=== PATIENT | male | born 1970 | race Caucasian/White ===

== ENCOUNTER 2018-07-13 12:53 | Emergency (ER) | payer OTHER, MEDICARE ==
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
[2018-07-13] MEDS ORDERED: ACETAMINOPHEN 325 MG TABLET PO ONE (13:52)
[2018-07-13] MEDS ORDERED: LORAZEPAM 1 MG TABLET PO ONE (13:53)
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
[2018-07-13 15:21] VITALS: BP 147/107
== END 2018-07-13 15:22 | disposition home or self-care (01) ==
LOC: ER 12:53
DX: M54.2 Cervicalgia (principal); R51 Headache; I10 Essential (primary) hypertension; V87.7XXA Person injured in collision between other specified motor vehicles (traffic), initial encounter
CPT/HCPCS: 70450; 72125; 99284

== ENCOUNTER → 2019-01-08 | Outpatient (CLI) | payer MEDICARE ==
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
== END ==
LOC: RAD 06:54
PROVIDERS: ATTEND Psychiatry & Neurology Neurology
DX: M54.2 Cervicalgia (principal); R51 Headache
CPT/HCPCS: 70553; 72141; A9576

== ENCOUNTER 2019-11-22 07:50 | Inpatient (IN) | payer MEDICARE ==
[2019-11-22] MEDS ORDERED: NORMAL SALINE 1000 ML 1,000 ML IV ONE (08:56)
[2019-11-22 09:12] LABS: VENOUS BLOOD BASE EXCESS -20.8 mmol/L; VENOUS BLOOD HCO3 4.8 mmol/L (20-32)
[2019-11-22 09:14] LABS: ABSOLUTE BASOPHILS # (AUTO) 0.2 10^3/uL (0.0-0.2); ABSOLUTE LYMPHOCYTES (AUTO) 0.9 10^3/uL (0.5-4.7); ABSOLUTE MONOCYTES (AUTO) 0.6 10^3/uL (0.1-1.4); ABSOLUTE NEUT (AUTO) 12.5 10^3/uL (1.7-8.2); BASOPHILS % (AUTO) 1.3 % (0-2); HEMATOCRIT 50.3 % (37.9-51.0); HEMOGLOBIN 17.3 g/dL (13.5-17.0); LYMPHOCYTES % (AUTO) 6.1 % (13-45); MEAN CORPUSCULAR HEMOGLOBIN 30.8 pg (27.0-33.4); MEAN CORPUSCULAR HGB CONC 34.4 g/dL (32.0-36.0); MEAN CORPUSCULAR VOLUME 90 fl (80-97); PLATELET COUNT 334 10^3/uL (150-450); RED BLOOD COUNT 5.62 10^6/uL (4.35-5.55); RED CELL DISTRIBUTION WIDTH 14.1 % (11.5-14.0); SEGMENTED NEUTROPHILS % (AUTO) 88.6 % (42-78); TOTAL CELLS COUNTED % (AUTO) 100 %; WHITE BLOOD COUNT 14.1 10^3/uL (4.0-10.5)
[2019-11-22 09:16] LABS: VENOUS BLOOD PCO2 13.4 mmHg (35-63); VENOUS BLOOD PH 7.17 (7.30-7.42)
[2019-11-22 09:34] LABS: ALKALINE PHOSPHATASE 136 U/L (38-126); ASPARTATE AMINO TRANSFERASE 18 U/L (17-59); BILIRUBIN,DIRECT 0.7 mg/dL (0.0-0.4); BILIRUBIN,TOTAL 1.1 mg/dL (0.2-1.3); BLOOD UREA NITROGEN 36 mg/dL (7-20); CALCIUM 9.7 mg/dL (8.4-10.2); CHLORIDE 77 mmol/L (98-107); POTASSIUM 4.7 mmol/L (3.6-5.0); TOTAL PROTEIN 9.5 g/dL (6.3-8.2)
[2019-11-22 09:49] LABS: APPEARANCE,URINE CLEAR; BILIRUBIN,URINE NEGATIVE (NEGATIVE); COLOR,URINE STRAW; GLUCOSE, URINE >=500 mg/dL (NEGATIVE); KETONES,URINE 80 mg/dL (NEGATIVE); LEUKOCYTE ESTERASE,URINE NEGATIVE (NEGATIVE); NITRITE,URINE NEGATIVE (NEGATIVE); PROTEIN,URINE 30 mg/dL (NEGATIVE); URINE SPECIFIC GRAVITY 1.023; UROBILINOGEN,URINE NEGATIVE mg/dL (<2.0)
[2019-11-22 09:51] LABS: CARBON DIOXIDE < 5 mmol/L (22-30); GLUCOSE 690 mg/dL (75-110)
[2019-11-22] MEDS ORDERED: NORMAL SALINE 100 ML with INSULIN REGULAR, HUMAN 100 UNIT IV PRN ×2 (10:10)
[2019-11-22] MEDS ORDERED: NORMAL SALINE 1000 ML 1,000 ML IV PRN ×2 (10:10→12:52)
--- NOTE | 2019-11-22 10:20 | ER Document Report ---
ED General - General Chief Complaint: Abdominal Pain Stated Complaint: EXCESSIVE THIRST, FREQUENT URINATION Time Seen by Provider: 11/22/19 09:31 Primary Care Provider: VIRGIE ELIZONDO MD [Primary Care Provider] - Follow up as needed TRAVEL OUTSIDE OF THE [place] IN LAST 30 DAYS: No - HPI Notes: 49-year-old male with lifelong history of psychosis under the care of a psychiatrist was recently started on one of the atypical antipsychotic agents and subsequently over the past 2 weeks he has developed nausea, weight loss, excessive thirst and frequent urination. He is vomited a lot within the last 24 hours and is weak to the point that he cannot stand without assistance now. He reports some burning epigastric discomfort. He is also had some blurring of his vision. He denies chest pain. He denies fever chills. He denies any past history of diabetes. Patient's family history is unknown to him. - Related Data Allergies/Adverse Reactions: No Known Allergies Allergy (Verified 11/22/19 07:56) Home Medications: baclofen. ziprasidone. mirtazapine. alprazolam. lisinopril. topiramate. celecoxib. oxycodone/acetaminoophen 10/325. gabapentin Past Medical History - General Information source: Patient, Friend - Social History Smoking Status: Never Smoker Chew tobacco use (# tins/day): No Frequency of alcohol use: None Drug Abuse: None Family History: Reviewed & Not Pertinent Patient has suicidal ideation: No Patient has homicidal ideation: No - Past Medical History Cardiac Medical History: Reports: Hx Congestive Heart Failure, Hx Hypertension Endocrine Medical History: Reports: None Renal/ Medical History: Denies: Hx Peritoneal Dialysis Psychiatric Medical History: Reports: Hx Depression, Other - Psychosis Past Surgical History: Reports: Hx Cholecystectomy, Hx Orthopedic Surgery Review of Systems - Review of Systems Notes: Constitutional: Negative for fever. HENT: Negative for sore throat. Eyes: Negative for visual changes. Cardiovascular: Negative for chest pain. Respiratory: Negative for shortness of breath. Gastrointestinal: As per HPI. Genitourinary: Negative for dysuria. Musculoskeletal: Negative for back pain. Skin: Negative for rash. Neurological: Negative for headaches, focal weakness or numbness. 10 point ROS negative except as marked above and in HPI. Physical Exam - Vital signs Vitals: Pulse Resp BP Pulse Ox 124 H 22 H 164/99 H 100 11/22/19 07:55 11/22/19 07:55 11/22/19 07:55 11/22/19 07:55 - Notes Notes: GENERAL: Middle-age male who appears very dehydrated with Kussmaul respirations present. SKIN: Good turgor no rashes. HEAD: Bitemporal wasting. EYES: Eyes appear sunken. PERRLA. EOMI. Conjunctivae and sclerae clear. EARS: CANALS AND TMS CLEAR. NOSE: CLEAR. MOUTH: Tacky oral mucosa. Good dentition. No stridor or edema. No drooling. NECK: Supple. No masses or thyromegaly. No adenopathy. Carotids 2+ without bruits. No JVD. BACK: Symmetrical without tenderness. CHEST: Kussmaul respirations. Breath sounds clear and symmetrical. HEART: Tachycardic regular rhythm. No murmur gallop or rub. ABDOMEN: Mild epigastric tenderness. Soft without masses, organomegaly or rebound. Bowel sounds normally active. No bruits. GENITALIA: Deferred. EXTREMITIES: No edema. No calf tenderness. Cap refill less than 1.5 seconds. Dorsalis pedis and posterior tibial pulses 3+ and symmetrical. NEUROLOGICAL: GCS 15. Alert and oriented x3. Fluent speech. Cranial nerves II through XII intact. Sensorimotor and cerebellar normal. Normal tone. PSYCHIATRIC: Flat affect. Course - Re-evaluation Re-evalutation: 11/22/19 10:22 Patient has new onset type 1 diabetes with DKA. Blood glucose is 690 his bicarb is 4.8 his venous pH is 7.1. Serum potassium is normal. Patient started on IV normal saline and IV insulin infusion. He will require critical care admission. - Vital Signs Vital signs: Temp Pulse Resp BP Pulse Ox 124 H 22 H 164/99 H 98 11/22/19 07:55 11/22/19 07:55 11/22/19 07:55 11/22/19 10:19 - Laboratory Result Diagrams: 11/22/19 09:02 11/22/19 09:02 Laboratory results interpreted by me: 11/22/19 11/22/19 11/22/19 09:02 09:02 09:02 WBC 14.1 H RBC 5.62 H Hgb 17.3 H RDW 14.1 H Lymph % (Auto) 6.1 L Absolute Neuts (auto) 12.5 H Seg Neutrophils % 88.6 H VBG pH 7.17 L* VBG pCO2 13.4 L* VBG HCO3 4.8 L Sodium 125.5 L Chloride 77 L Carbon Dioxide < 5 L* BUN 36 H Creatinine 1.90 H Est GFR ( Amer) 46 L Est GFR (MDRD) Non-Af 38 L Glucose 690 H* Direct Bilirubin 0.7 H Alkaline Phosphatase 136 H Total Protein 9.5 H Albumin 6.0 H Urine Protein Urine Glucose (UA) Urine Ketones Urine Blood 11/22/19 09:25 WBC RBC Hgb RDW Lymph % (Auto) Absolute Neuts (auto) Seg Neutrophils % VBG pH VBG pCO2 VBG HCO3 Sodium Chloride Carbon Dioxide BUN Creatinine Est GFR ( Amer) Est GFR (MDRD) Non-Af Glucose Direct Bilirubin Alkaline Phosphatase Total Protein Albumin Urine Protein 30 H Urine Glucose (UA) >=500 H Urine Ketones 80 H Urine Blood MODERATE H Critical Care Note - Critical Care Note Total time excluding time spent on procedures (mins): 35 - IV insulin drip initiated. Cardiac monitoring. IV normal saline. Discharge - Discharge Clinical Impression: Diabetic ketoacidosis Qualifiers: Diabetes mellitus type: type 1 Diabetes mellitus complication detail: without coma Qualified Code(s): E10.10 - Type 1 diabetes mellitus with ketoacidosis without coma Condition: Critical Disposition: ADMITTED INPATIENT Admitting Provider: Andrew (Hospitalist) Unit Admitted: IMCU Referrals: VIRGIE ELIZONDO MD [Primary Care Provider] - Follow up as needed
[2019-11-22] MEDS ORDERED: INSULIN REG, HUMAN 100 UNIT/ML 3 ML VIAL (PYX) ONE ×3 (10:26→23:05)
--- NOTE | 2019-11-22 11:00 | PDOC CRITICAL CARE PROG REPORT ---
General Date:: 11/22/19 ICU Day:: 0 Ventilator Day:: 0 Hospital Day:: 0 Resuscitation Status: Full Code Events in the past 12 to 24 Hours:: Dehydrated, possible GI virus, New onset DM and DKA. Review of systems relevant to events:: Endocrine Reason for ICU Addmission:: Evaluation - Medications: Medications reviewed and adjusted accordingly: Yes Vasopressors:: None Sedation:: None Physical Exam Vital Signs: Temp Pulse Resp BP Pulse Ox 98 F 124 H 18 164/99 H 98 11/22/19 10:38 11/22/19 07:55 11/22/19 10:00 11/22/19 07:55 11/22/19 10:19 Intake & Output 11/21/19 11/22/19 11/23/19 06:59 06:59 06:59 Intake Total 1000 Balance 1000 Weight 101.7 kg Weight/Height Weight 101.7 kg Height 5 ft 10 in General appearance: PRESENT: no acute distress, well-developed, well-nourished Head exam: PRESENT: atraumatic, normocephalic Eye exam: PRESENT: conjunctiva pink, EOMI, PERRLA. ABSENT: scleral icterus Ear exam: PRESENT: normal external ear exam Mouth exam: PRESENT: dry mucosa Respiratory exam: PRESENT: clear to auscultation tracee. ABSENT: rales, rhonchi, wheezes Cardiovascular exam: PRESENT: RRR, tachycardia. ABSENT: diastolic murmur, rubs, systolic murmur GI/Abdominal exam: PRESENT: normal bowel sounds, soft, other - Mild pain.. ABSENT: distended, guarding, mass, organolmegaly, rebound, tenderness Rectal exam: PRESENT: deferred Extremities exam: PRESENT: full ROM. ABSENT: calf tenderness, clubbing, pedal edema Neurological exam: PRESENT: alert, awake, oriented to person, oriented to place, oriented to time, oriented to situation, CN II-XII grossly intact. ABSENT: motor sensory deficit Skin exam: PRESENT: dry, intact, warm. ABSENT: cyanosis, rash Laboratory/Radiographs Laboratory Results: 11/22/19 09:02 11/22/19 09:02 11/22/19 11/22/19 11/22/19 09:02 09:02 09:02 WBC 14.1 H RBC 5.62 H Hgb 17.3 H Hct 50.3 MCV 90 MCH 30.8 MCHC 34.4 RDW 14.1 H Plt Count 334 Seg Neutrophils % 88.6 H VBG pH 7.17 L* VBG pCO2 13.4 L* VBG HCO3 4.8 L VBG Base Excess -20.8 Sodium 125.5 L Potassium 4.7 Chloride 77 L Carbon Dioxide < 5 L* Anion Gap Not Reportable BUN 36 H Creatinine 1.90 H Est GFR ( Amer) 46 L Glucose 690 H* Calcium 9.7 Total Bilirubin 1.1 AST 18 Alkaline Phosphatase 136 H Total Protein 9.5 H Albumin 6.0 H Lipase 67.7 Urine Color Urine Appearance Urine pH Ur Specific Bartlett Urine Protein Urine Glucose (UA) Urine Ketones Urine Blood Urine Nitrite Ur Leukocyte Esterase Urine WBC (Auto) Urine RBC (Auto) 11/22/19 09:25 WBC RBC Hgb Hct MCV MCH MCHC RDW Plt Count Seg Neutrophils % VBG pH VBG pCO2 VBG HCO3 VBG Base Excess Sodium Potassium Chloride Carbon Dioxide Anion Gap BUN Creatinine Est GFR ( Amer) Glucose Calcium Total Bilirubin AST Alkaline Phosphatase Total Protein Albumin Lipase Urine Color STRAW Urine Appearance CLEAR Urine pH 5.0 Ur Specific Bartlett 1.023 Urine Protein 30 H Urine Glucose (UA) >=500 H Urine Ketones 80 H Urine Blood MODERATE H Urine Nitrite NEGATIVE Ur Leukocyte Esterase NEGATIVE Urine WBC (Auto) 0 Urine RBC (Auto) 0 Impressions: New DKA and dehydration may be related to Zyprexa. All labs, radiographs, diagnostic studies and EKGs were personally reviewed: Yes In addition, reports of radiographic and diagnostic studies were read: Yes Assessment and Plan - Diagnosis (1) Diabetic ketoacidosis Qualifiers: Diabetes mellitus type: type 1 Diabetes mellitus complication detail: without coma Qualified Code(s): E10.10 - Type 1 diabetes mellitus with ketoacidosis without coma Is this a current diagnosis for this admission?: Yes Plan: This is unusual to have a new onset DKA at age 49. The recent use of zyprexa is intriguing as it can cause a DKA picture rarely. His doctor has already told him to stop this. He has had a viral GI issue that may also be playing a role. He has no personal or family history of DM. He is awake, conversant, sleepy but otherwise is stable for [facility] [place] VBG of 7.17 is good. Bicarb of < 5 is notable but will not change treatment. He looks sick but not toxic. He does not need an ICU level of care right now. (2) Psychosis Qualifiers: Psychosis type: unspecified psychosis type Qualified Code(s): F29 - Unspecified psychosis not due to a substance or known physiological condition Is this a current diagnosis for this admission?: Yes Plan: He is already off zyprexa. Continue routine DKA care with IVF and insulin drip. Plan Summary: IVF and insulin drip. Critical Time Critical Time (minutes): 35 Level of Care: IMCU Anticipated discharge: Home Within: within 72 hours -: 1. The care of a critical patient is a dynamic process. This note is a applications sales representative synopsis but static in nature. The timeframe for treatments given in order is not necessarily the actual time these treatments may have been done. 2. This patient requires critical care secondary to ongoing requirements for therapy not offered or safe outside the critical care environment. Transfer to a lower level of care will result in altered life or limb morbidity and mortality. 3. Multidisciplinary rounds completed. 4. ABCDE bundle addressed.
--- NOTE | 2019-11-22 11:03 | RADIOLOGY REPORT (SQ) ---
EXAM DESCRIPTION: CHEST SINGLE VIEW COMPLETED DATE/TIME: 11/22/2019 10:53 am REASON FOR STUDY: DKA COMPARISON: None. EXAM PARAMETERS: NUMBER OF VIEWS: One view. TECHNIQUE: Single frontal radiographic view of the chest acquired. RADIATION DOSE: NA LIMITATIONS: None. FINDINGS: LUNGS AND PLEURA: No opacities, masses or pneumothorax. No pleural effusion. MEDIASTINUM AND HILAR STRUCTURES: No masses. Contour normal. HEART AND VASCULAR STRUCTURES: Heart normal in size. Normal vasculature. BONES: No acute findings. HARDWARE: None in the chest. OTHER: No other significant finding. IMPRESSION: NO ACUTE RADIOGRAPHIC FINDING IN THE CHEST. TECHNICAL DOCUMENTATION: JOB ID: [id number] 2010 [employer]- All Rights Reserved Reading location - IP/workstation name: [email or web address]
[2019-11-22] MEDS ORDERED: DEXTROSE 40% GEL 15 GM TUBE PO PRN ×2 (12:52)
[2019-11-22] MEDS ORDERED: DEXTROSE 50%-WATER 25 GM/50 ML DISP.SYRIN IV PRN ×2 (12:52)
[2019-11-22] MEDS ORDERED: GLUCAGON,HUMAN RECOMB 1 MG INJ SUBCUT PRN (12:52)
[2019-11-22] MEDS ORDERED: NS IV PRN ×2 (13:15)
[2019-11-22] MEDS ORDERED: [UNRECOGNIZED DRUG - OTHER] IV PRN ×2 (13:15)
--- NOTE | 2019-11-22 13:31 | PDOC H&P ---
History of Present Illness Admission Date/PCP: 11/22/19 10:55 VIRGIE ELIZONDO MD Patient complains of: Nausea vomiting, confusion History of Present Illness: FLORES KIRK JR is a 49 year old male with a history of OCD, bipolar type I, PTSD, depression, reported CHF, hypertension, who was brought into the hospital accompanied by his classmate. Patient complains of 2-week history of feeling unwell with symptoms including nausea vomiting, confusion, occasional lightheadedness. Patient has been dehydrated and has not been able to tolerate much. He has been eating sweets. He denies any history of diabetes. Patient endorses that he was recently started on Zyprexa 2 weeks ago for treatment of his psychiatric conditions and believes that it is contributing to patient's symptoms. Patient has also demonstrated other classic symptoms of diabetes over the past 2 weeks including polydipsia, polyuria and lack of appetite. Patient denies any shortness of breath at this time. Past Medical History Cardiac Medical History: Reports: Congestive Heart Failure, Hypertension Endocrine Medical History: Reports: None Psychiatric Medical History: Reports: Bipolar Disorder, Depression, Post Traumatic Stress Disorder Past Surgical History Past Surgical History: Reports: Cholecystectomy, Orthopedic Surgery Social History Smoking Status: Never Smoker Electronic Cigarette use?: No Frequency of Alcohol Use: None Hx Recreational Drug Use: No Hx Prescription Drug Abuse: No - Advance Directive Resuscitation Status: Full Code Family History Family History: Other - Patient never met his family Parental Family History Reviewed: Yes Children Family History Reviewed: NA Sibling(s) Family History Reviewed.: NA Medication/Allergy Home Medications: Alprazolam 2 mg PO Q8HP PRN 11/22/19 Baclofen [Baclofen 10 mg Tablet] 10 mg PO Q6HP PRN 11/22/19 Carbamazepine [Tegretol 200 mg Tablet] 400 mg PO DAILY 11/22/19 Carbamazepine [Tegretol 200 mg Tablet] 600 mg PO QHS 11/22/19 Celecoxib 400 mg PO Q12 11/22/19 Gabapentin 1,600 mg PO Q8 11/22/19 Lisinopril/Hydrochlorothiazide [Lisinopril-Hctz 10-12.5 mg Tab] 1 tab PO DAILY 11/22/19 Mirtazapine 45 mg PO QHS 11/22/19 Oxycodone HCl/Acetaminophen [Oxycodone-Acetaminophen 10-325] 1 tab PO Q6HP PRN 11/22/19 Topiramate [Topamax 100 mg Tablet] 100 mg PO QHS 11/22/19 Ziprasidone HCl [Geodon 40 Mg Capsule] 80 mg PO QHS 11/22/19 Allergies/Adverse Reactions: No Known Allergies Allergy (Verified 11/22/19 07:56) Review of Systems Constitutional: PRESENT: fatigue. ABSENT: chills, fever(s) Eyes: ABSENT: visual disturbances Nose, Mouth, and Throat: ABSENT: headache(s) Cardiovascular: ABSENT: chest pain Respiratory: ABSENT: dyspnea Gastrointestinal: PRESENT: abdominal pain, nausea, vomiting Genitourinary: ABSENT: dysuria Musculoskeletal: PRESENT: back pain - Chronic Integumentary: ABSENT: diaphoresis Neurological: PRESENT: confusion Psychiatric: PRESENT: depression - Chronic Endocrine: PRESENT: polydipsia, polyuria Hematologic/Lymphatic: ABSENT: easy bleeding Physical Exam Vital Signs: Temp Pulse Resp BP Pulse Ox 97.7 F 116 H 20 155/99 H 99 11/22/19 12:56 11/22/19 12:56 11/22/19 12:56 11/22/19 12:56 11/22/19 12:56 Intake & Output 11/21/19 11/22/19 11/23/19 06:59 06:59 06:59 Intake Total 1018 Balance 1018 Weight 163.9 kg General appearance: PRESENT: no acute distress, cooperative, morbidly obese Head exam: PRESENT: normocephalic Eye exam: PRESENT: EOMI Mouth exam: PRESENT: neck supple Neck exam: ABSENT: JVD Respiratory exam: PRESENT: clear to auscultation tracee, unlabored. ABSENT: tachypnea, wheezes Cardiovascular exam: PRESENT: +S1, +S2, tachycardia. ABSENT: irregular rhythm GI/Abdominal exam: PRESENT: normal bowel sounds, soft, tenderness - Very mildly. ABSENT: rebound, rigid Extremities exam: ABSENT: calf tenderness Musculoskeletal exam: PRESENT: ambulatory Neurological exam: PRESENT: alert, awake, oriented to person, oriented to place, oriented to time Psychiatric exam: ABSENT: agitated, anxious Focused psych exam: ABSENT: delusional, internal stimuli, pressured speech, restlessness Skin exam: PRESENT: other - Mildly flushed skin Results Laboratory Results: 11/22/19 09:02 11/22/19 09:02 11/22/19 11/22/1920 09:02 09:02 09:02 WBC 14.1 H RBC 5.62 H Hgb 17.3 H Hct 50.3 MCV 90 MCH 30.8 MCHC 34.4 RDW 14.1 H Plt Count 334 Seg Neutrophils % 88.6 H VBG pH 7.17 L* VBG pCO2 13.4 L* VBG HCO3 4.8 L VBG Base Excess -20.8 Sodium 125.5 L Potassium 4.7 Chloride 77 L Carbon Dioxide < 5 L* Anion Gap Not Reportable BUN 36 H Creatinine 1.90 H Est GFR ( Amer) 46 L Glucose 690 H* Calcium 9.7 Total Bilirubin 1.1 AST 18 Alkaline Phosphatase 136 H Total Protein 9.5 H Albumin 6.0 H Lipase 67.7 Urine Color Urine Appearance Urine pH Ur Specific [place] Urine Protein Urine Glucose (UA) Urine Ketones Urine Blood Urine Nitrite Ur Leukocyte Esterase Urine WBC (Auto) Urine RBC (Auto) 11/22/19 09:25 WBC RBC Hgb Hct MCV MCH MCHC RDW Plt Count Seg Neutrophils % VBG pH VBG pCO2 VBG HCO3 VBG Base Excess Sodium Potassium Chloride Carbon Dioxide Anion Gap BUN Creatinine Est GFR ( Amer) Glucose Calcium Total Bilirubin AST Alkaline Phosphatase Total Protein Albumin Lipase Urine Color STRAW Urine Appearance CLEAR Urine pH 5.0 Ur Specific [place] 1.023 Urine Protein 30 H Urine Glucose (UA) >=500 H Urine Ketones 80 H Urine Blood MODERATE H Urine Nitrite NEGATIVE Ur Leukocyte Esterase NEGATIVE Urine WBC (Auto) 0 Urine RBC (Auto) 0 11/22/19 11/22/19 09:02 09:02 Troponin I < 0.012 NT-Pro-B Natriuret Pep 95 Impressions: Chest X-Ray 11/22/19 10:08 IMPRESSION: NO ACUTE RADIOGRAPHIC FINDING IN THE CHEST. Assessment and Plan - Diagnosis (1) Diabetic ketoacidosis Qualifiers: Diabetes mellitus type: other specified (including NITA) Diabetes mellitus complication detail: without coma Qualified Code(s): E13.10 - Other specified diabetes mellitus with ketoacidosis without coma Is this a current diagnosis for this admission?: Yes Plan: New onset diagnosis for patient had no prior history of diabetes. Currently patient's Zyprexa could have caused metabolic syndrome which precipitated patient's DKA. However patient likely has underlying diabetes mellitus possibly type II. Blood work revealing high anion gap metabolic acidosis pH of 7.17. Started on insulin drip and I will give IV bolus of insulin 10 units now. Hourly Accu-Cheks, repeat BMP and venous blood gas. Aggressive IV hydration with saline and potassium supplement 250 cc/h Check hemoglobin A1c (2) Bipolar disorder with depression Is this a current diagnosis for this admission?: Yes Plan: We will resume patient's other psych medications but will hold off on Zyprexa for now (3) Hypertension Qualifiers: Hypertension type: essential hypertension Qualified Code(s): I10 - Essential (primary) hypertension Is this a current diagnosis for this admission?: Yes Plan: Patient reports being diagnosed with CHF for which he takes blood pressure medication but currently BNP is within normal limits and as such definitely not an acute exacerbation. Continue patient's antihypertensive medications. (4) Leukocytosis Qualifiers: Leukocytosis type: unspecified Qualified Code(s): D72.829 - Elevated white blood cell count, unspecified Is this a current diagnosis for this admission?: Yes Plan: This is likely secondary to hemoconcentration from dehydration. Urinalysis negative for any infection and chest x-ray is normal remarkable as well. No evidence of current infectious etiology. Monitor with CBC in the morning. - Time Time Spent with patient: 35 or more minutes
[2019-11-22] MEDS: GABAPENTIN 400 MG CAPSULE PO SCH ×2 (14:10→21:07)
[2019-11-22] MEDS: OXYCODONE-ACETAMINOPHEN 5-325 MG TABLET PO PRN (14:10)
[2019-11-22] MEDS: BACLOFEN 10 MG TABLET PO SCH ×3 (14:11→21:06)
[2019-11-22] MEDS: HEPARIN SOD (PORCINE) 5,000 UNIT/ML 1 ML VIAL SUBCUT SCH ×2 (14:24→21:09)
[2019-11-22] MEDS ORDERED: LISINOPRIL 10 MG TABLET PO ONE (14:30)
[2019-11-22] MEDS ORDERED: INSULIN REG, HUMAN 100 UNIT/ML 3 ML VIAL (PYX) IV ONE (14:30)
[2019-11-22] MEDS ORDERED: POTASSI CL 20 MEQ/NS 1L 1,000 ML IV ONE (14:55)
[2019-11-22] MEDS: ONDANSETRON HCL INJ/PF 4 MG/2 ML SDV IV PRN ×2 (14:58→21:19)
[2019-11-22 15:20] LABS: VENOUS BLOOD BASE EXCESS -17.5 mmol/L; VENOUS BLOOD HCO3 7.6 mmol/L (20-32); VENOUS BLOOD PH 7.21 (7.30-7.42)
[2019-11-22 15:24] LABS: VENOUS BLOOD PCO2 19.2 mmHg (35-63)
[2019-11-22] MEDS ORDERED: POTASSI CL 20 MEQ/NS 1L 1000 ML IV PRN (15:30)
[2019-11-22 15:34] LABS: BLOOD UREA NITROGEN 34 mg/dL (7-20); CALCIUM 9.2 mg/dL (8.4-10.2); CHLORIDE 95 mmol/L (98-107); GLUCOSE 260 mg/dL (75-110)
[2019-11-22 15:43] LABS: POTASSIUM 3.6 mmol/L (3.6-5.0)
[2019-11-22 15:44] LABS: CARBON DIOXIDE < 5 mmol/L (22-30)
[2019-11-22] MEDS ORDERED: HYDRALAZINE HCL INJ/PF 20 MG/1 ML SDV IV PRN (16:15)
[2019-11-22] MEDS ORDERED: POTASSI CL 20 MEQ/50 ML RIDER 20 MEQ/50 ML RTUPB IV ONE (16:45)
[2019-11-22 16:48] LABS: URINE AMPHETAMINES SCREEN NEGATIVE; URINE BARBITURATES SCREEN NEGATIVE; URINE COCAINE SCREEN NEGATIVE; URINE MARIJUANA (THC) SCREEN NEGATIVE; URINE METHADONE SCREEN NEGATIVE; URINE PHENCYCLIDINE SCREEN NEGATIVE
[2019-11-22 16:51] LABS: URINE BENZODIAZEPINES SCREEN UNCONFIRMED POSITIVE
[2019-11-22] MEDS ORDERED: POTASSIUM CHLORIDE 10 MEQ TABLET.ER PO ONE (17:00)
[2019-11-22] MEDS: NORMAL SALINE 100 ML with INSULIN REGULAR, HUMAN 100 UNIT IV PRN ×4 (17:21→22:37)
--- NOTE | 2019-11-22 17:29 | EKG REPORT ---
SEVERITY:- ABNORMAL ECG - SINUS TACHYCARDIA NONSPECIFIC INTRAVENTRICULAR CONDUCTION DELAY : Confirmed by: Philomena Carvalho MD 22-Nov-2019 17:29:22
[2019-11-22] MEDS ORDERED: POTASSI CL 20 MEQ/D5NS 1L 1000 ML IV PRN ×2 (19:05→20:53)
[2019-11-22 19:16] LABS: VENOUS BLOOD BASE EXCESS -11.7 mmol/L; VENOUS BLOOD HCO3 11.8 mmol/L (20-32); VENOUS BLOOD PCO2 22.9 mmHg (35-63); VENOUS BLOOD PH 7.33 (7.30-7.42)
[2019-11-22 19:41] LABS: BLOOD UREA NITROGEN 31 mg/dL (7-20); CALCIUM 8.5 mg/dL (8.4-10.2); GLUCOSE 156 mg/dL (75-110); POTASSIUM 4.3 mmol/L (3.6-5.0)
[2019-11-22 19:48] LABS: ANION GAP 23 (5-19); CHLORIDE 99 mmol/L (98-107)
[2019-11-22 19:51] LABS: CARBON DIOXIDE 10 mmol/L (22-30)
[2019-11-22] MEDS: MIRTAZAPINE 15 MG TABLET PO SCH (21:07)
[2019-11-22] MEDS: CARBAMAZEPINE 200 MG TABLET PO SCH (21:08)
[2019-11-22] MEDS: ALPRAZOLAM 0.5 MG TABLET PO PRN (21:12)
[2019-11-22] MEDS: TOPIRAMATE 100 MG TABLET PO SCH (21:23)
[2019-11-22] MEDS ORDERED: MIRTAZAPINE 15 MG TABLET PO SCH (22:00)
[2019-11-22] MEDS ORDERED: ZIPRASIDONE HCL 40 MG CAPSULE PO SCH (22:00)
[2019-11-22 22:47] LABS: ANION GAP 18 (5-19); BLOOD UREA NITROGEN 31 mg/dL (7-20); CALCIUM 8.3 mg/dL (8.4-10.2); CARBON DIOXIDE 13 mmol/L (22-30); CHLORIDE 101 mmol/L (98-107); GLUCOSE 123 mg/dL (75-110); POTASSIUM 4.1 mmol/L (3.6-5.0)
[2019-11-23] MEDS ORDERED: POTASSI CL 20 MEQ/D5NS 1L 1000 ML IV PRN (00:04)
[2019-11-23 04:50] LABS: HEMATOCRIT 43.3 % (37.9-51.0); MEAN CORPUSCULAR HEMOGLOBIN 29.7 pg (27.0-33.4); MEAN CORPUSCULAR HGB CONC 34.6 g/dL (32.0-36.0); PLATELET COUNT 200 10^3/uL (150-450); RED BLOOD COUNT 5.05 10^6/uL (4.35-5.55); RED CELL DISTRIBUTION WIDTH 13.8 % (11.5-14.0); WHITE BLOOD COUNT 12.6 10^3/uL (4.0-10.5)
[2019-11-23 04:55] LABS: MEAN CORPUSCULAR VOLUME 86 fl (80-97)
[2019-11-23 05:06] LABS: ANION GAP 15 (5-19); BLOOD UREA NITROGEN 26 mg/dL (7-20); CALCIUM 8.6 mg/dL (8.4-10.2); CARBON DIOXIDE 18 mmol/L (22-30); CHLORIDE 103 mmol/L (98-107); GLUCOSE 79 mg/dL (75-110); POTASSIUM 3.8 mmol/L (3.6-5.0)
[2019-11-23] MEDS: HEPARIN SOD (PORCINE) 5,000 UNIT/ML 1 ML VIAL SUBCUT SCH ×3 (05:16→22:47)
[2019-11-23] MEDS: GABAPENTIN 400 MG CAPSULE PO SCH ×3 (05:16→22:49)
[2019-11-23] MEDS: ALPRAZOLAM 0.5 MG TABLET PO PRN ×2 (05:16→22:51)
[2019-11-23] MEDS ORDERED: INSULIN NPH (ISOPHANE), HUMAN 100 UNIT/ML 3 ML SUBCUT ONE (08:45)
[2019-11-23] MEDS ORDERED: METOCLOPRAMIDE HCL INJ/PF 10 MG/2 ML SDV IV PRN (09:10)
--- NOTE | 2019-11-23 09:22 | PDOC PROGRESS REPORT ---
Subjective Progress Note for:: 11/23/19 Subjective:: Patient feels a lot better today. Still has some nausea this morning but much improved. No longer vomiting. Abdominal pain is mild at this point. States that he feels a lot less fatigue. Reason For Visit: DIABETIC KETOACIDOSIS Physical Exam Vital Signs: Temp Pulse Resp BP Pulse Ox 98.1 F 97 12 119/70 95 11/23/19 07:39 11/23/19 07:39 11/23/19 07:39 11/23/19 07:39 11/23/19 07:39 Intake & Output 11/22/19 11/23/19 11/24/19 06:59 06:59 06:59 Intake Total 5304 Output Total 650 Balance 4654 Weight 170 kg General appearance: PRESENT: no acute distress, cooperative Eye exam: PRESENT: EOMI Neck exam: ABSENT: JVD Respiratory exam: PRESENT: clear to auscultation tracee, unlabored. ABSENT: tachypnea, wheezes Cardiovascular exam: PRESENT: RRR, +S1, +S2. ABSENT: tachycardia GI/Abdominal exam: PRESENT: normal bowel sounds, soft, tenderness - Mild epigastric tenderness. ABSENT: distended, firm, guarding, rebound, rigid Neurological exam: PRESENT: alert, awake, oriented to person, oriented to place, oriented to time Results Laboratory Results: 11/23/19 04:16 11/23/19 04:16 11/22/19 11/22/19 11/22/19 09:02 09:02 09:02 WBC 14.1 H RBC 5.62 H Hgb 17.3 H Hct 50.3 MCV 90 MCH 30.8 MCHC 34.4 RDW 14.1 H Plt Count 334 Seg Neutrophils % 88.6 H VBG pH 7.17 L* VBG pCO2 13.4 L* VBG HCO3 4.8 L VBG Base Excess -20.8 Sodium 125.5 L Potassium 4.7 Chloride 77 L Carbon Dioxide < 5 L* Anion Gap Not Reportable BUN 36 H Creatinine 1.90 H Est GFR ( Amer) 46 L Glucose 690 H* Lactic Acid Calcium 9.7 Total Bilirubin 1.1 AST 18 Alkaline Phosphatase 136 H Total Protein 9.5 H Albumin 6.0 H Lipase 67.7 Urine Color Urine Appearance Urine pH Ur Specific [place] Urine Protein Urine Glucose (UA) Urine Ketones Urine Blood Urine Nitrite Ur Leukocyte Esterase Urine WBC (Auto) Urine RBC (Auto) 11/22/19 11/22/19 11/22/19 09:25 15:05 15:05 WBC RBC Hgb Hct MCV MCH MCHC RDW Plt Count Seg Neutrophils % VBG pH 7.21 L VBG pCO2 19.2 L* VBG HCO3 7.6 L VBG Base Excess -17.5 Sodium 134.5 L Potassium 3.6 D Chloride 95 L Carbon Dioxide < 5 L* Anion Gap Not Reportable BUN 34 H Creatinine 1.34 H Est GFR ( Amer) > 60 Glucose 260 H Lactic Acid Calcium 9.2 Total Bilirubin AST Alkaline Phosphatase Total Protein Albumin Lipase Urine Color STRAW Urine Appearance CLEAR Urine pH 5.0 Ur Specific [place] 1.023 Urine Protein 30 H Urine Glucose (UA) >=500 H Urine Ketones 80 H Urine Blood MODERATE H Urine Nitrite NEGATIVE Ur Leukocyte Esterase NEGATIVE Urine WBC (Auto) 0 Urine RBC (Auto) 0 11/22/19 11/22/19 11/22/19 19:00 19:00 19:00 WBC RBC Hgb Hct MCV MCH MCHC RDW Plt Count Seg Neutrophils % VBG pH 7.33 VBG pCO2 22.9 L VBG HCO3 11.8 L VBG Base Excess -11.7 Sodium 131.7 L Potassium 4.3 Chloride 99 Carbon Dioxide 10 L* Anion Gap 23 H BUN 31 H Creatinine 0.95 Est GFR ( Amer) > 60 Glucose 156 H Lactic Acid 1.2 Calcium 8.5 Total Bilirubin AST Alkaline Phosphatase Total Protein Albumin Lipase Urine Color Urine Appearance Urine pH Ur Specific [place] Urine Protein Urine Glucose (UA) Urine Ketones Urine Blood Urine Nitrite Ur Leukocyte Esterase Urine WBC (Auto) Urine RBC (Auto) 11/22/19 11/23/19 11/23/19 22:16 04:16 04:16 WBC 12.6 H RBC 5.05 Hgb 15.0 D Hct 43.3 MCV 86 D MCH 29.7 MCHC 34.6 RDW 13.8 Plt Count 200 Seg Neutrophils % VBG pH VBG pCO2 VBG HCO3 VBG Base Excess Sodium 131.8 L 135.5 L Potassium 4.1 3.8 Chloride 101 103 Carbon Dioxide 13 L 18 L Anion Gap 18 15 BUN 31 H 26 H Creatinine 0.86 0.87 Est GFR ( Amer) > 60 > 60 Glucose 123 H 79 Lactic Acid Calcium 8.3 L 8.6 Total Bilirubin AST Alkaline Phosphatase Total Protein Albumin Lipase Urine Color Urine Appearance Urine pH Ur Specific [place] Urine Protein Urine Glucose (UA) Urine Ketones Urine Blood Urine Nitrite Ur Leukocyte Esterase Urine WBC (Auto) Urine RBC (Auto) 11/22/19 11/22/19 09:02 09:02 Troponin I < 0.012 NT-Pro-B Natriuret Pep 95 Impressions: Chest X-Ray 11/22/19 10:08 IMPRESSION: NO ACUTE RADIOGRAPHIC FINDING IN THE CHEST. Assessment and Plan - Diagnosis (1) Diabetic ketoacidosis Qualifiers: Diabetes mellitus type: other specified (including NITA) Diabetes mellitus complication detail: without coma Qualified Code(s): E13.10 - Other specified diabetes mellitus with ketoacidosis without coma Is this a current diagnosis for this admission?: Yes Plan: New onset diagnosis diabetes mellitus likely type II. Currently patient's Zyprexa could have caused metabolic syndrome which precipitated patient's DKA. Seems to have resolved today. Hemoglobin A1c of 11 Plan to discontinue insulin drip and bridge patient with NPH while starting Lantus tonight. Diabetes education ordered. Start on carb restricted diet (2) Bipolar disorder with depression Is this a current diagnosis for this admission?: Yes Plan: Patient is a very heavy antipsychotic regimen. Carbamazepine, Geodon, mirtazap ine and topiramate (3) Hypertension Qualifiers: Hypertension type: essential hypertension Qualified Code(s): I10 - Essential (primary) hypertension Is this a current diagnosis for this admission?: Yes Plan: Patient reports being diagnosed with CHF for which he takes blood pressure medication but currently BNP is within normal limits and as such definitely not an acute exacerbation. Continue patient's antihypertensive medications. (4) Leukocytosis Qualifiers: Leukocytosis type: unspecified Qualified Code(s): D72.829 - Elevated white blood cell count, unspecified Is this a current diagnosis for this admission?: Yes Plan: This is likely secondary to hemoconcentration from dehydration. Urinalysis negative for any infection and chest x-ray is normal remarkable as well. No evidence of current infectious etiology. Improving this morning. Repeat CBC tomorrow morning as well. (5) Acute kidney injury Is this a current diagnosis for this admission?: Yes Plan: Secondary to dehydrated state. BMP reviewed. Resolved following hydration. - Time Time Spent with patient: 15-24 minutes
[2019-11-23] MEDS: OXYCODONE-ACETAMINOPHEN 5-325 MG TABLET PO PRN ×2 (09:26→17:17)
[2019-11-23] MEDS: HYDROCHLOROTHIAZIDE 12.5 MG TABLET PO SCH (09:26)
[2019-11-23] MEDS: BACLOFEN 10 MG TABLET PO SCH ×4 (09:27→22:50)
[2019-11-23] MEDS: LISINOPRIL 10 MG TABLET PO SCH (09:27)
[2019-11-23] MEDS: CARBAMAZEPINE 200 MG TABLET PO SCH ×2 (09:27→22:49)
[2019-11-23] MEDS ORDERED: METOCLOPRAMIDE HCL INJ/PF 10 MG/2 ML SDV IV SCH (11:00)
[2019-11-23] MEDS: INSULIN LISPRO 100 UNIT/ML 3 ML VIAL SUBCUT SCH ×3 (12:09→21:20)
[2019-11-23] MEDS: INSULIN GLARGINE,HUM.REC.ANLOG 1,000 UNIT/10 ML VIAL SUBCUT SCH (17:19)
[2019-11-23] MEDS ORDERED: INSULIN GLARGINE,HUM.REC.ANLOG 1,000 UNIT/10 ML VIAL SUBCUT SCH (22:00)
[2019-11-23] MEDS ORDERED: ZIPRASIDONE HCL 40 MG CAPSULE PO SCH (22:00)
[2019-11-23] MEDS: MIRTAZAPINE 15 MG TABLET PO SCH (22:50)
[2019-11-23] MEDS: TOPIRAMATE 100 MG TABLET PO SCH (22:58)
[2019-11-24 05:41] LABS: HEMOGLOBIN 15.3 g/dL (13.5-17.0); MEAN CORPUSCULAR HEMOGLOBIN 30.7 pg (27.0-33.4); MEAN CORPUSCULAR HGB CONC 35.6 g/dL (32.0-36.0); MEAN CORPUSCULAR VOLUME 86 fl (80-97); PLATELET COUNT 144 10^3/uL (150-450); RED BLOOD COUNT 4.98 10^6/uL (4.35-5.55); RED CELL DISTRIBUTION WIDTH 13.8 % (11.5-14.0); WHITE BLOOD COUNT 7.8 10^3/uL (4.0-10.5)
[2019-11-24 06:16] LABS: BLOOD UREA NITROGEN 16 mg/dL (7-20); GLUCOSE 239 mg/dL (75-110); POTASSIUM 3.4 mmol/L (3.6-5.0)
[2019-11-24 06:22] LABS: CARBON DIOXIDE 15 mmol/L (22-30); CHLORIDE 96 mmol/L (98-107)
[2019-11-24] MEDS: GABAPENTIN 400 MG CAPSULE PO SCH ×3 (06:27→21:47)
[2019-11-24 06:29] LABS: ANION GAP 22 (5-19)
[2019-11-24] MEDS: HEPARIN SOD (PORCINE) 5,000 UNIT/ML 1 ML VIAL SUBCUT SCH ×3 (06:29→21:48)
[2019-11-24] MEDS ORDERED: NORMAL SALINE 1000 ML 1,000 ML IV ONE (07:21)
[2019-11-24] MEDS ORDERED: DEXTROSE 40% GEL 15 GM TUBE PO PRN (07:26)
[2019-11-24] MEDS ORDERED: INSULIN LISPRO 100 UNIT/ML 3 ML VIAL SUBCUT ONE (08:15)
[2019-11-24] MEDS ORDERED: NORMAL SALINE 1000 ML 2,000 ML IV ONE (08:30)
[2019-11-24] MEDS: INSULIN LISPRO 100 UNIT/ML 3 ML VIAL SUBCUT SCH ×6 (08:36→21:46)
[2019-11-24] MEDS: POTASSIUM CHLORIDE 10 MEQ TABLET.ER PO SCH ×2 (08:42→17:13)
[2019-11-24] MEDS: HYDROCHLOROTHIAZIDE 12.5 MG TABLET PO SCH (08:43)
[2019-11-24] MEDS: METOCLOPRAMIDE HCL INJ/PF 10 MG/2 ML SDV IV SCH ×3 (08:43→17:14)
[2019-11-24] MEDS: BACLOFEN 10 MG TABLET PO SCH ×4 (10:13→21:48)
[2019-11-24] MEDS: LISINOPRIL 10 MG TABLET PO SCH (10:13)
[2019-11-24] MEDS: CARBAMAZEPINE 200 MG TABLET PO SCH ×2 (10:14→21:47)
[2019-11-24] MEDS: OXYCODONE-ACETAMINOPHEN 5-325 MG TABLET PO PRN (10:16)
--- NOTE | 2019-11-24 10:53 | PDOC PROGRESS REPORT ---
Subjective Progress Note for:: 11/24/19 Subjective:: Patient's abdominal pain has resolved today and patient is much less nauseated. He is ready to attempt eating. Notably patient did not eat much throughout yesterday. I discussed with patient about his Geodon which was restarted last night and patient states that he had stopped taking Geodon at home because it made him feel unwell and has not taken it for a while. Reason For Visit: DIABETIC KETOACIDOSIS Physical Exam Vital Signs: Temp Pulse Resp BP Pulse Ox 97.2 F 118 H 16 151/91 H 100 11/24/19 07:53 11/24/19 07:53 11/24/19 07:53 11/24/19 07:53 11/24/19 07:53 Intake & Output 11/23/19 11/24/19 11/25/19 06:59 06:59 06:59 Intake Total 5304 1455 Output Total 650 1900 Balance 4654 -445 Weight 170 kg 168.8 kg General appearance: PRESENT: no acute distress, cooperative Neck exam: ABSENT: JVD Respiratory exam: PRESENT: clear to auscultation tracee, unlabored. ABSENT: tachypnea, wheezes Cardiovascular exam: PRESENT: RRR, +S1, +S2. ABSENT: tachycardia GI/Abdominal exam: PRESENT: normal bowel sounds, soft. ABSENT: rebound, rigid, tenderness Neurological exam: PRESENT: alert, awake, oriented to person, oriented to place, oriented to time, oriented to situation Results Laboratory Results: 11/24/19 05:18 11/24/19 05:18 11/24/19 11/24/19 05:18 05:18 WBC 7.8 RBC 4.98 Hgb 15.3 Hct 43.0 MCV 86 MCH 30.7 MCHC 35.6 RDW 13.8 Plt Count 144 L Sodium 132.8 L Potassium 3.4 L Chloride 96 L Carbon Dioxide 15 L Anion Gap 22 H BUN 16 Creatinine 0.75 Est GFR ( Amer) > 60 Glucose 239 H Calcium 9.0 11/22/19 11/22/19 09:02 09:02 Troponin I < 0.012 NT-Pro-B Natriuret Pep 95 Impressions: Chest X-Ray 11/22/19 10:08 IMPRESSION: NO ACUTE RADIOGRAPHIC FINDING IN THE CHEST. Assessment and Plan - Diagnosis (1) Diabetic ketoacidosis Qualifiers: Diabetes mellitus type: other specified (including NITA) Diabetes mellitus complication detail: without coma Qualified Code(s): E13.10 - Other specified diabetes mellitus with ketoacidosis without coma Is this a current diagnosis for this admission?: Yes Plan: New onset diagnosis diabetes mellitus likely type II. Currently patient's Zyprexa could have caused metabolic syndrome which precipitated patient's DKA. Hemoglobin A1c of 11 Unfortunately patient's anion gap bumped to 22 this morning. Blood glucose just in the 200s. I will give 2 L normal saline bolus and lispro 10 units. I will also discontinue Geodon especially as patient states that he stopped this at home. Repeat BMP this afternoon. Will place patient on 5 units lispro with meals and continue Lantus 15 units nightly. Continue sliding scale. Diabetes education ordered. (2) Bipolar disorder with depression Is this a current diagnosis for this admission?: Yes Plan: Patient is a very heavy antipsychotic regimen. Carbamazepine, mirtazapine and topiramate. Geodon held. (3) Hypertension Qualifiers: Hypertension type: essential hypertension Qualified Code(s): I10 - Essential (primary) hypertension Is this a current diagnosis for this admission?: Yes Plan: Monitor BP. Continue lisinopril and adjust medication dose if needed. (4) Leukocytosis Qualifiers: Leukocytosis type: unspecified Qualified Code(s): D72.829 - Elevated white blood cell count, unspecified Is this a current diagnosis for this admission?: Yes Plan: This is likely secondary to hemoconcentration from dehydration. Resolved with hydration. (5) Acute kidney injury Is this a current diagnosis for this admission?: Yes Plan: Secondary to dehydrated state. Resolved following hydration. - Time Time Spent with patient: 15-24 minutes
--- NOTE | 2019-11-24 13:11 | EKG REPORT ---
SEVERITY:- ABNORMAL ECG - SINUS TACHYCARDIA LEFT ANTERIOR FASCICULAR BLOCK : Confirmed by: Gurpreet Dumont MD 24-Nov-2019 13:09:49
[2019-11-24] MEDS ORDERED: LISINOPRIL 10 MG TABLET PO ONE (16:00)
[2019-11-24] MEDS: INSULIN GLARGINE,HUM.REC.ANLOG 1,000 UNIT/10 ML VIAL SUBCUT SCH (17:11)
[2019-11-24 18:50] LABS: BLOOD UREA NITROGEN 12 mg/dL (7-20); CALCIUM 8.8 mg/dL (8.4-10.2); CHLORIDE 95 mmol/L (98-107); GLUCOSE 224 mg/dL (75-110); POTASSIUM 3.6 mmol/L (3.6-5.0)
[2019-11-24 18:56] LABS: CARBON DIOXIDE 15 mmol/L (22-30)
[2019-11-24 19:01] LABS: ANION GAP 22 (5-19)
[2019-11-24] MEDS: MIRTAZAPINE 15 MG TABLET PO SCH (21:47)
[2019-11-24] MEDS: TOPIRAMATE 100 MG TABLET PO SCH (21:48)
[2019-11-24] MEDS: ALPRAZOLAM 0.5 MG TABLET PO PRN (21:50)
[2019-11-24] MEDS ORDERED: DEXTROSE 5%-NORMAL SALINE 1,000 ML with POTASSIUM CHLORIDE 40 MEQ IV PRN ×2 (22:01)
[2019-11-24] MEDS ORDERED: POTASSIUM CHLORIDE 10 MEQ TABLET.ER PO ONE (22:12)
[2019-11-24] MEDS ORDERED: POTASSI CL IV ONE (23:11)
[2019-11-24] MEDS ORDERED: RTUINJ IV ONE (23:11)
[2019-11-24] MEDS ORDERED: D5 IV ONE (23:11)
[2019-11-24] MEDS ORDERED: [UNRECOGNIZED DRUG - OTHER] IV ONE (23:11)
[2019-11-24] MEDS ORDERED: INSULIN REG, HUMAN 100 UNIT/ML 3 ML VIAL (PYX) ONE (23:22)
[2019-11-24] MEDS: NORMAL SALINE 100 ML with INSULIN REGULAR, HUMAN 100 UNIT IV PRN ×2 (23:27)
[2019-11-25] MEDS: POTASSI CL 20 MEQ/D5-1/2NS 1L 1000 ML IV PRN ×3 (00:16→10:53)
[2019-11-25 01:29] LABS: APPEARANCE,URINE CLEAR; BILIRUBIN,URINE NEGATIVE (NEGATIVE); COLOR,URINE YELLOW; GLUCOSE, URINE >=500 mg/dL (NEGATIVE); KETONES,URINE 80 mg/dL (NEGATIVE); LEUKOCYTE ESTERASE,URINE NEGATIVE (NEGATIVE); NITRITE,URINE NEGATIVE (NEGATIVE); PROTEIN,URINE 30 mg/dL (NEGATIVE); URINE SPECIFIC GRAVITY 1.026; UROBILINOGEN,URINE NEGATIVE mg/dL (<2.0)
[2019-11-25] MEDS: HEPARIN SOD (PORCINE) 5,000 UNIT/ML 1 ML VIAL SUBCUT SCH ×3 (05:13→21:49)
[2019-11-25] MEDS: GABAPENTIN 400 MG CAPSULE PO SCH ×3 (05:14→21:51)
[2019-11-25 05:39] LABS: ANION GAP 15 (5-19); BLOOD UREA NITROGEN 14 mg/dL (7-20); CALCIUM 8.9 mg/dL (8.4-10.2); CARBON DIOXIDE 22 mmol/L (22-30); CHLORIDE 97 mmol/L (98-107); CHOLESTEROL 207.01 mg/dL (0-200); GLUCOSE 121 mg/dL (75-110); POTASSIUM 3.5 mmol/L (3.6-5.0); TRIGLYCERIDES 229 mg/dL (<150)
[2019-11-25 05:49] LABS: DIRECT LDL 146 mg/dL (<100)
[2019-11-25 05:58] LABS: VLDL CHOLESTEROL 45.8 mg/dL (10-31)
[2019-11-25] MEDS: NORMAL SALINE 100 ML with INSULIN REGULAR, HUMAN 100 UNIT IV PRN ×2 (09:08)
[2019-11-25] MEDS: BACLOFEN 10 MG TABLET PO SCH ×4 (09:10→21:51)
[2019-11-25] MEDS: LISINOPRIL 10 MG TABLET PO SCH (09:10)
[2019-11-25] MEDS: HYDROCHLOROTHIAZIDE 12.5 MG TABLET PO SCH (09:10)
[2019-11-25] MEDS: CARBAMAZEPINE 200 MG TABLET PO SCH ×2 (09:11→21:51)
[2019-11-25] MEDS: OXYCODONE-ACETAMINOPHEN 5-325 MG TABLET PO PRN (09:16)
[2019-11-25] MEDS: ALPRAZOLAM 0.5 MG TABLET PO PRN ×2 (09:19→21:55)
[2019-11-25 11:35] LABS: ANION GAP 9 (5-19); BLOOD UREA NITROGEN 12 mg/dL (7-20); CALCIUM 8.6 mg/dL (8.4-10.2); CARBON DIOXIDE 23 mmol/L (22-30); CHLORIDE 101 mmol/L (98-107); GLUCOSE 104 mg/dL (75-110); POTASSIUM 3.2 mmol/L (3.6-5.0)
--- NOTE | 2019-11-25 13:50 | PDOC PROGRESS REPORT ---
Subjective Progress Note for:: 11/25/19 Subjective:: Patient is feeling tired still. He was placed back on insulin infusion for an increased anion gap. He was given IV fluids as well. His Accu-Chek is less than 100 and the infusion has been stopped. Reason For Visit: DIABETIC KETOACIDOSIS Physical Exam Vital Signs: Temp Pulse Resp BP Pulse Ox 97.7 F 79 18 113/66 100 11/25/19 11:38 11/25/19 11:38 11/25/19 11:38 11/25/19 11:38 11/25/19 11:38 Intake & Output 11/24/19 11/25/19 11/26/19 06:59 06:59 06:59 Intake Total 1455 2628 1093 Output Total 1900 2565 Balance -107 32 4363 Weight 168.8 kg 170.2 kg General appearance: PRESENT: no acute distress Eye exam: PRESENT: conjunctiva pink. ABSENT: scleral icterus Mouth exam: PRESENT: moist, tongue midline Respiratory exam: PRESENT: clear to auscultation tracee, symmetrical, unlabored. ABSENT: rales, rhonchi, tachypnea, wheezes Cardiovascular exam: PRESENT: RRR, +S1, +S2. ABSENT: diastolic murmur, systolic murmur GI/Abdominal exam: PRESENT: normal bowel sounds, soft. ABSENT: distended, mass, tenderness Rectal exam: PRESENT: deferred Gentrourinary exam: ABSENT: indwelling catheter Extremities exam: PRESENT: full ROM. ABSENT: pedal edema Musculoskeletal exam: PRESENT: ambulatory, full ROM, normal inspection. ABSENT: deformity Neurological exam: PRESENT: alert, awake, oriented to person, oriented to place, oriented to time, oriented to situation, CN II-XII grossly intact. ABSENT: motor sensory deficit Psychiatric exam: PRESENT: flat affect. ABSENT: agitated, anxious Focused psych exam: ABSENT: delusional, paranoid, restlessness Skin exam: PRESENT: dry, normal color, warm. ABSENT: rash Results Laboratory Results: 11/24/19 05:18 11/25/19 10:00 11/24/19 11/24/19 11/25/19 18:30 23:05 04:18 Sodium 131.6 L 133.7 L Potassium 3.6 3.5 L Chloride 95 L 97 L Carbon Dioxide 15 L 22 Anion Gap 22 H 15 BUN 12 14 Creatinine 0.70 0.55 Est GFR ( Amer) > 60 > 60 Glucose 224 H 121 H Calcium 8.8 8.9 Triglycerides 229 H Cholesterol 207.01 H LDL Cholesterol Direct 146 H VLDL Cholesterol 45.8 H HDL Cholesterol 44 Urine Color YELLOW Urine Appearance CLEAR Urine pH 5.0 Ur Specific [place] 1.026 Urine Protein 30 H Urine Glucose (UA) >=500 H Urine Ketones 80 H Urine Blood SMALL H Urine Nitrite NEGATIVE Ur Leukocyte Esterase NEGATIVE Urine WBC (Auto) 1 Urine RBC (Auto) 0 11/25/19 10:00 Sodium 132.7 L Potassium 3.2 L Chloride 101 Carbon Dioxide 23 Anion Gap 9 BUN 12 Creatinine 0.50 L Est GFR ( Amer) > 60 Glucose 104 Calcium 8.6 Triglycerides Cholesterol LDL Cholesterol Direct VLDL Cholesterol HDL Cholesterol Urine Color Urine Appearance Urine pH Ur Specific [place] Urine Protein Urine Glucose (UA) Urine Ketones Urine Blood Urine Nitrite Ur Leukocyte Esterase Urine WBC (Auto) Urine RBC (Auto) 11/22/19 11/22/19 09:02 09:02 Troponin I < 0.012 NT-Pro-B Natriuret Pep 95 Impressions: Chest X-Ray 11/22/19 10:08 IMPRESSION: NO ACUTE RADIOGRAPHIC FINDING IN THE CHEST. Assessment and Plan - Diagnosis (1) Diabetic ketoacidosis Qualifiers: Diabetes mellitus type: type 2 Diabetes mellitus complication detail: without coma Qualified Code(s): E11.10 - Type 2 diabetes mellitus with ketoacidosis without coma Is this a current diagnosis for this admission?: Yes (2) Hypertension Qualifiers: Hypertension type: essential hypertension Qualified Code(s): I10 - Essential (primary) hypertension Is this a current diagnosis for this admission?: Yes (3) Leukocytosis Qualifiers: Leukocytosis type: unspecified Qualified Code(s): D72.829 - Elevated white blood cell count, unspecified Is this a current diagnosis for this admission?: Yes (4) Bipolar disorder with depression Is this a current diagnosis for this admission?: Yes (5) Acute kidney injury Is this a current diagnosis for this admission?: Yes - Plan Summary Summary: 11/25/2019 The patient will come off of the insulin infusion. He will be on Lantus and sliding scale insulin. I will consider starting metformin as his acute kidney injury is resolved. He will likely need insulin at home but this regimen can be adjusted by his primary care provider. We will check his serum chemistries tomorrow to monitor resolution of anion gap. Leukocytosis has resolved. Acute kidney injury has resolved Hypertension is controlled on current regimen. No changes at this time. Geodon has been discontinued as this could have contributed to his diabetic ketoacidosis. The patient had not been taking this medication at home prior to admission. - Time Time Spent with patient: 15-24 minutes Medications reviewed and adjusted accordingly: Yes Anticipated discharge: Home
[2019-11-25] MEDS: POTASSIUM CHLORIDE 20 MEQ/50 ML RTU IV ONE ×2 (16:58→17:00)
[2019-11-25] MEDS: INSULIN LISPRO 100 UNIT/ML 3 ML VIAL SUBCUT SCH ×2 (18:05→21:52)
[2019-11-25] MEDS: POTASSI CL 40 MEQ/D5-1/2NS 1L 1000 ML IV PRN ×2 (18:11→21:49)
[2019-11-25] MEDS: TOPIRAMATE 100 MG TABLET PO SCH (21:50)
[2019-11-25] MEDS: MIRTAZAPINE 15 MG TABLET PO SCH (21:51)
[2019-11-25] MEDS: INSULIN GLARGINE,HUM.REC.ANLOG 1,000 UNIT/10 ML VIAL SUBCUT SCH (21:52)
[2019-11-26] MEDS: INSULIN LISPRO 100 UNIT/ML 3 ML VIAL SUBCUT SCH ×4 (01:24→15:16)
[2019-11-26] MEDS: OXYCODONE-ACETAMINOPHEN 5-325 MG TABLET PO PRN ×2 (01:26→09:13)
[2019-11-26 05:23] LABS: ANION GAP 9 (5-19); BLOOD UREA NITROGEN 12 mg/dL (7-20); CALCIUM 8.4 mg/dL (8.4-10.2); CARBON DIOXIDE 27 mmol/L (22-30); CHLORIDE 94 mmol/L (98-107); GLUCOSE 208 mg/dL (75-110); POTASSIUM 3.8 mmol/L (3.6-5.0)
[2019-11-26] MEDS: HEPARIN SOD (PORCINE) 5,000 UNIT/ML 1 ML VIAL SUBCUT SCH ×2 (05:47→14:01)
[2019-11-26] MEDS: GABAPENTIN 400 MG CAPSULE PO SCH ×2 (05:47→13:46)
[2019-11-26] MEDS ORDERED: METFORMIN HCL 500 MG TABLET PO SCH (08:00)
[2019-11-26] MEDS: HYDROCHLOROTHIAZIDE 12.5 MG TABLET PO SCH (08:33)
[2019-11-26] MEDS: BACLOFEN 10 MG TABLET PO SCH ×2 (09:13→13:46)
[2019-11-26] MEDS: ALPRAZOLAM 0.5 MG TABLET PO PRN (09:13)
[2019-11-26] MEDS: LISINOPRIL 10 MG TABLET PO SCH (09:13)
[2019-11-26] MEDS: CARBAMAZEPINE 200 MG TABLET PO SCH (09:14)
[2019-11-26] MEDS: INSULIN GLARGINE,HUM.REC.ANLOG 1,000 UNIT/10 ML VIAL SUBCUT SCH (09:14)
--- NOTE | 2019-11-26 13:12 | PDOC DISCHARGE SUMMARY ---
Impression - Admit/DC Date/PCP Admission Date/Primary Care Provider: 11/22/19 10:55 VIRGIE ELIZONDO MD Discharge Date: 11/26/19 - Discharge Diagnosis (1) Diabetic ketoacidosis Is this a current diagnosis for this admission?: Yes (2) Hypertension Is this a current diagnosis for this admission?: Yes (3) Leukocytosis Is this a current diagnosis for this admission?: Yes (4) Bipolar disorder with depression Is this a current diagnosis for this admission?: Yes (5) Acute kidney injury Is this a current diagnosis for this admission?: Yes - Assessment Summary: 11/25/2019 The patient will come off of the insulin infusion. He will be on Lantus and sliding scale insulin. I will consider starting metformin as his acute kidney injury is resolved. He will likely need insulin at home but this regimen can be adjusted by his primary care provider. We will check his serum chemistries tomorrow to monitor resolution of anion gap. Leukocytosis has resolved. Acute kidney injury has resolved Hypertension is controlled on current regimen. No changes at this time. Geodon has been discontinued as this could have contributed to his diabetic ketoacidosis. The patient had not been taking this medication at home prior to admission. - Additional Information Resuscitation Status: Full Code Discharge Diet: Diabetic Discharge Activity: Activity As Tolerated, Slowly Increase Activity Referrals: VIRGIE ELIZONDO MD [Primary Care Provider] - 12/09/19 2:15 pm Prescriptions: Blood-Glucose Meter, Drum-Type [Accu-Chek] 1 kit MC ASDIR #1 kit Lancing Device/Lancets [Accu-Chek Softclix Lancet Kit] 1 kit MC ASDIR PRN #1 kit PRN Reason: Metformin HCl [Glucophage 500 mg Tablet] 500 mg PO BIDACBS 15 Days #30 tablet Insulin Lispro [Humalog Kwikpen] See Protocol SQ BIDACBSP PRN #3 ml PRN Reason: Insulin Glargine,Hum.rec.anlog [Lantus Insulin 100 Unit/mL Insulin Pen] 12 unit SUBCUT BID 21 Days #2 pen Pen Needle, Diabetic [Pen [place]] 1 each MC BIDACBSP PRN #120 dis.needle PRN Reason: Home Medications: Alprazolam 2 mg PO Q8HP PRN 11/22/19 Baclofen [Baclofen 10 mg Tablet] 10 mg PO QID 11/22/19 Carbamazepine [Tegretol 200 mg Tablet] 400 mg PO DAILY 11/22/19 Carbamazepine [Tegretol 200 mg Tablet] 600 mg PO QHS 11/22/19 Celecoxib 400 mg PO Q12 11/22/19 Gabapentin 1,600 mg PO Q8 11/22/19 Lisinopril/Hydrochlorothiazide [Lisinopril-Hctz 10-12.5 mg Tab] 1 tab PO DAILY 11/22/19 Mirtazapine 45 mg PO QHS 11/22/19 Oxycodone HCl/Acetaminophen [Oxycodone-Acetaminophen 10-325] 1 tab PO Q6HP PRN 11/22/19 Topiramate [Topamax 100 mg Tablet] 100 mg PO QHS 11/22/19 Blood-Glucose Meter, Drum-Type [Accu-Chek] 1 kit ASDIR #1 kit 11/26/19 Hydrochlorothiazide [Hydrodiuril 12.5 mg Tablet] 12.5 mg PO QAM tablet 11/26/19 Insulin Glargine,Hum.rec.anlog [Lantus Insulin 100 Unit/mL Insulin Pen] 12 unit SUBCUT BID 21 Days #2 pen 11/26/19 Insulin Lispro [Humalog Kwikpen] See Protocol SQ BIDACBSP PRN #3 ml 11/26/19 Lancing Device/Lancets [Accu-Chek Softclix Lancet Kit] 1 kit ASDIR PRN #1 kit 11/26/19 Metformin HCl [Glucophage 500 mg Tablet] 500 mg PO BIDACBS 15 Days #30 tablet 11/26/19 Pen Needle, Diabetic [Pen [place]] 1 each BIDACBSP PRN #120 dis.needle 11/26/19 History of Present Illiness History of Present Illness: FLORES KIRK JR is a 49 year old male with a history of OCD, bipolar type I, PTSD, depression, reported CHF, hypertension, who was brought into the hospital accompanied by his classmate. Patient complains of 2-week history of feeling unwell with symptoms including nausea vomiting, confusion, occasional lightheadedness. Patient has been dehydrated and has not been able to tolerate much. He has been eating sweets. He denies any history of diabetes. Patient endorses that he was recently started on Zyprexa 2 weeks ago for treatment of his psychiatric conditions and believes that it is contributing to patient's symptoms. Patient has also demonstrated other classic symptoms of diabetes over the past 2 weeks including polydipsia, polyuria and lack of appetite. Patient denies any shortness of breath at this time. Hospital Course Hospital Course: The patient initially tapered from the insulin drip but then began having an increased anion gap and required a return to the continuous insulin infusion. He received more fluids. He was able to taper off of the insulin infusion yesterday and has done much better. He is tolerating an oral diet. We did start metformin but he will gradually need to adjust his medication regimen with his primary care provider. With the fluids the diabetic ketoacidosis resolved. Also the acute kidney injury resolved. The patient's leukocytosis resolved as well. He does have much improved glucose control. He will start his outpatient regimen with Lantus and Humalog sliding scale as well as initial dosing of metformin. He is no longer on Geodon and will continue his other psychiatric medications as he has been stable. I did explain to the patient that this diabetes regimen will change once he is back in the care of his primary care provider. In all likelihood they will probably try and move to oral medications as a first step. Physical Exam Vital Signs: Temp Pulse Resp BP Pulse Ox 98.1 F 100 18 140/94 H 100 11/26/19 07:34 11/26/19 07:34 11/26/19 07:34 11/26/19 07:34 11/26/19 07:34 Intake & Output 11/25/19 11/26/19 11/27/19 06:59 06:59 06:59 Intake Total 2628 4041 1999 Output Total 2565 2430 Balance 63 1611 1999 Weight 170.2 kg 173.2 kg General appearance: PRESENT: no acute distress, cooperative, well-developed Head exam: PRESENT: atraumatic, normocephalic Eye exam: PRESENT: conjunctiva pink. ABSENT: scleral icterus Ear exam: PRESENT: normal external ear exam. ABSENT: bleeding, drainage Respiratory exam: PRESENT: clear to auscultation tracee, symmetrical, unlabored. ABSENT: prolonged expiratory phas, rales, rhonchi, tachypnea, wheezes Cardiovascular exam: PRESENT: RRR, +S1, +S2. ABSENT: diastolic murmur, systolic murmur GI/Abdominal exam: PRESENT: normal bowel sounds, soft. ABSENT: distended, guarding, mass, tenderness Rectal exam: PRESENT: deferred Gentrourinary exam: ABSENT: indwelling catheter Extremities exam: PRESENT: full ROM. ABSENT: joint swelling, pedal edema Musculoskeletal exam: PRESENT: full ROM, normal inspection. ABSENT: deformity Neurological exam: PRESENT: alert, awake, oriented to person, oriented to place, oriented to time, oriented to situation, CN II-XII grossly intact. ABSENT: altered, motor sensory deficit Psychiatric exam: PRESENT: flat affect. ABSENT: agitated, anxious, manic Focused psych exam: ABSENT: delusional, pressured speech, restlessness Skin exam: PRESENT: dry, normal color, warm. ABSENT: rash Results Laboratory Results: WBC 7.8 10^3/uL (4.0-10.5) 11/24/19 05:18 RBC 4.98 10^6/uL (4.35-5.55) 11/24/19 05:18 Hgb 15.3 g/dL (13.5-17.0) 11/24/19 05:18 Hct 43.0 % (37.9-51.0) 11/24/19 05:18 MCV 86 fl (80-97) 11/24/19 05:18 MCH 30.7 pg (27.0-33.4) 11/24/19 05:18 MCHC 35.6 g/dL (32.0-36.0) 11/24/19 05:18 RDW 13.8 % (11.5-14.0) 11/24/19 05:18 Plt Count 144 10^3/uL (150-450) L 11/24/19 05:18 Lymph % (Auto) 6.1 % (13-45) L 11/22/19 09:02 [place] % (Auto) 4.0 % (3-13) 11/22/19 09:02 Eos % (Auto) 0.0 % (0-6) 11/22/19 09:02 Baso % (Auto) 1.3 % (0-2) 11/22/19 09:02 Absolute Neuts (auto) 12.5 10^3/uL (1.7-8.2) H 11/22/19 09:02 Absolute Lymphs (auto) 0.9 10^3/uL (0.5-4.7) 11/22/19 09:02 Absolute Monos (auto) 0.6 10^3/uL (0.1-1.4) 11/22/19 09:02 Absolute Eos (auto) 0.0 10^3/uL (0.0-0.6) 11/22/19 09:02 Absolute Basos (auto) 0.2 10^3/uL (0.0-0.2) 11/22/19 09:02 Seg Neutrophils % 88.6 % (42-78) H 11/22/19 09:02 VBG pH 7.33 (7.30-7.42) 11/22/19 19:00 VBG pCO2 22.9 mmHg (35-63) L 11/22/19 19:00 VBG HCO3 11.8 mmol/L (20-32) L 11/22/19 19:00 VBG Base Excess -11.7 mmol/L 11/22/19 19:00 Sodium 129.7 mmol/L (137-145) L 11/26/19 04:49 Potassium 3.8 mmol/L (3.6-5.0) 11/26/19 04:49 Chloride 94 mmol/L (98-107) L 11/26/19 04:49 Carbon Dioxide 27 mmol/L (22-30) 11/26/19 04:49 Anion Gap 9 (5-19) 11/26/19 04:49 BUN 12 mg/dL (7-20) 11/26/19 04:49 Creatinine 0.59 mg/dL (0.52-1.25) 11/26/19 04:49 Est GFR ( Amer) > 60 (>60) 11/26/19 04:49 Est GFR (MDRD) Non-Af > 60 (>60) 11/26/19 04:49 Glucose 208 mg/dL (75-110) H 11/26/19 04:49 POC Glucose 286 mg/dL (70-110) H 11/26/19 10:03 Hemoglobin A1c % 11.6 % (4.7-6.0) H 11/23/19 04:16 Lactic Acid 1.2 mmol/L (0.7-2.1) 11/22/19 19:00 Calcium 8.4 mg/dL (8.4-10.2) 11/26/19 04:49 Magnesium 2.0 mg/dL (1.6-2.3) 11/26/19 04:49 Total Bilirubin 1.1 mg/dL (0.2-1.3) 11/22/19 09:02 Direct Bilirubin 0.7 mg/dL (0.0-0.4) H 11/22/19 09:02 Neonat Total Bilirubin Not Reportable 11/22/19 09:02 Neonat Direct Bilirubin Not Reportable 11/22/19 09:02 Neonat Indirect Bili Not Reportable 11/22/19 09:02 AST 18 U/L (17-59) 11/22/19 09:02 ALT 17 U/L (<50) 11/22/19 09:02 Alkaline Phosphatase 136 U/L (38-126) H 11/22/19 09:02 Troponin I < 0.012 ng/mL 11/22/19 09:02 NT-Pro-B Natriuret Pep 95 pg/mL (<125) 11/22/19 09:02 Total Protein 9.5 g/dL (6.3-8.2) H 11/22/19 09:02 Albumin 6.0 g/dL (3.5-5.0) H 11/22/19 09:02 Triglycerides 229 mg/dL (<150) H 11/25/19 04:18 Cholesterol 207.01 mg/dL (0-200) H 11/25/19 04:18 LDL Cholesterol Direct 146 mg/dL (<100) H 11/25/19 04:18 VLDL Cholesterol 45.8 mg/dL (10-31) H 11/25/19 04:18 HDL Cholesterol 44 mg/dL (>40) 11/25/19 04:18 Lipase 67.7 U/L (23-300) 11/22/19 09:02 Urine Color YELLOW 11/24/19 23:05 Urine Appearance CLEAR 11/24/19 23:05 Urine pH 5.0 (5.0-9.0) 11/24/19 23:05 Ur Specific [place] 1.026 11/24/19 23:05 Urine Protein 30 mg/dL (NEGATIVE) H 11/24/19 23:05 Urine Glucose (UA) >=500 mg/dL (NEGATIVE) H 11/24/19 23:05 Urine Ketones 80 mg/dL (NEGATIVE) H 11/24/19 23:05 Urine Blood SMALL (NEGATIVE) H 11/24/19 23:05 Urine Nitrite NEGATIVE (NEGATIVE) 11/24/19 23:05 Urine Bilirubin NEGATIVE (NEGATIVE) 11/24/19 23:05 Urine Urobilinogen NEGATIVE mg/dL (<2.0) 11/24/19 23:05 Ur Leukocyte Esterase NEGATIVE (NEGATIVE) 11/24/19 23:05 Urine WBC (Auto) 1 /HPF 11/24/19 23:05 Urine RBC (Auto) 0 /HPF 11/24/19 23:05 Squamous Epi Cells Auto <1 /HPF 11/24/19 23:05 Urine Mucus (Auto) RARE /LPF 11/24/19 23:05 Urine Ascorbic Acid NEGATIVE (NEGATIVE) 11/24/19 23:05 Urine Opiates Screen NEGATIVE 11/22/19 09:25 Urine Methadone Screen NEGATIVE 11/22/19 09:25 Ur Barbiturates Screen NEGATIVE 11/22/19 09:25 Ur Phencyclidine Scrn NEGATIVE 11/22/19 09:25 Ur Amphetamines Screen NEGATIVE 11/22/19 09:25 U Benzodiazepines Scrn UNCONFIRMED POSITIVE 11/22/19 09:25 Urine Cocaine Screen NEGATIVE 11/22/19 09:25 U Marijuana (THC) Screen NEGATIVE 11/22/19 09:25 11/22/19 11/22/19 09:02 09:02 Troponin I < 0.012 NT-Pro-B Natriuret Pep 95 Impressions: Chest X-Ray 11/22/19 10:08 IMPRESSION: NO ACUTE RADIOGRAPHIC FINDING IN THE CHEST. Plan Health Concerns: New diagnosis of diabetes mellitus for require lifestyle modification as well as strict compliance to his regimen. His hemoglobin A1c was markedly elevated. He will need rechecking in several months. It is likely that he will be able to move towards an all oral regimen for the diabetes. He was also instructed to stop his Geodon as this may have contributed to the diabetic ketoacidosis. Plan of Treatment: Initial regimen of Lantus, Humalog and metformin. Accu-Cheks twice daily. Sliding scale for Humalog. Diabetic education for diet. Continue remainder of home medications. Goals: Eventually to have good control of his diabetes. He also explained that he will likely need statin therapy which is the recommendation of the [place] [employer] and [place] [employer]. He is already on lisinopril. Prescriptions for a Lantus pen, Humalog pen, pen needles, glucometer and lancets were sent to [facility]. Time Spent: Greater than 30 Minutes Stroke Is this a Stroke Patient?: No Acute Heart Failure - Is this a Heart Failure Patient?: No
[2019-11-26 14:52] VITALS: BP 115/74
== END 2019-11-26 16:25 | disposition home or self-care (01) | DRG 638 ==
LOC: ER 07:50 → EH 10:55 → 3N 12:52
PROVIDERS: ADMIT Internal Medicine; ATTEND Internal Medicine
DX: E11.10 Type 2 diabetes mellitus with ketoacidosis without coma (principal); N17.9 Acute kidney failure, unspecified; F31.9 Bipolar disorder, unspecified; D72.829 Elevated white blood cell count, unspecified; I50.9 Heart failure, unspecified; I11.0 Hypertensive heart disease with heart failure; E86.0 Dehydration; Z79.899 Other long term (current) drug therapy
CPT/HCPCS: 36415; 71045; 80048; 80053; 80061; 80307; 81001; 82803; 82962; 83036; 83605; 83690; 83735; 83880; 84484; 85025; 85027; 93005; 93010; 96360; 99291; J1644; J1815; J2405; J2765; J3480; J3490; J7030; J7050

== ENCOUNTER → 2020-01-09 | Outpatient (CLI) | payer MEDICARE ==
--- NOTE | 2020-01-09 13:13 | RADIOLOGY REPORT (SQ) ---
EXAM DESCRIPTION: MRI LT LOWER EXTREMITY WITHOUT IMAGES COMPLETED DATE/TIME: 01/09/2020 12:51 pm REASON FOR STUDY: M77.42 METATARSALGIA, LEFT FOOT, M79.2 NEURALGIA AND NEURITIS, UNSPECIFIED M77.42 METATARSALGIA, LEFT FOOT M79.2 NEURALGIA AND NEURITIS, UNSPECIFIED COMPARISON: None. TECHNIQUE: T1-weighted, T2-weighted, and gradient echo noncontrast multiplanar imaging of the left f oot. LIMITATIONS: None. FINDINGS: MARROW SIGNAL: No marrow signal alteration. No occult fracture. No evidence for osteo ne crosis. JOINT EFFUSION: No significant effusions. PLANTAR FASCIA: Normal as visualized. TARSOMETATARSAL AND TOE ARTICULATIONS: Anatomic. Mild degenerative changes first metatarsal phalange al joint. INTERMETATARSAL SPACES AND PLANTAR PLATES: Intact. No soft tissue mass to suggest a neuroma. SOFT TISSUES: No masses. No fibrosis. OTHER: No other significant finding. IMPRESSION: NO SIGNIFICANT FINDING. NO EXPLANATION FOR PAIN. TECHNICAL DOCUMENTATION: JOB ID: [id number] 2010 [employer]- All Rights Reserved Reading location - IP/workstation name: [email or web address]
== END ==
LOC: RAD 11:43
PROVIDERS: ATTEND Preventive Medicine Undersea and Hyperbaric Medicine
DX: M77.42 Metatarsalgia, left foot (principal); M79.2 Neuralgia and neuritis, unspecified

== ENCOUNTER → 2020-01-09 | Outpatient (CLI) | payer MEDICARE ==
[2020-01-09 14:10] LABS: ABSOLUTE BASOPHILS # (AUTO) 0.1 10^3/uL (0.0-0.2); ABSOLUTE EOSINOPHILS # (AUTO) 0.3 10^3/uL (0.0-0.6); ABSOLUTE LYMPHOCYTES (AUTO) 1.9 10^3/uL (0.5-4.7); ABSOLUTE MONOCYTES (AUTO) 0.4 10^3/uL (0.1-1.4); EOSINOPHILS % (AUTO) 4.3 % (0-6); HEMATOCRIT 43.2 % (37.9-51.0); HEMOGLOBIN 14.8 g/dL (13.5-17.0); LYMPHOCYTES % (AUTO) 24.5 % (13-45); MEAN CORPUSCULAR HEMOGLOBIN 29.9 pg (27.0-33.4); MEAN CORPUSCULAR HGB CONC 34.2 g/dL (32.0-36.0); MEAN CORPUSCULAR VOLUME 87 fl (80-97); MONOCYTES % (AUTO) 5.5 % (3-13); PLATELET COUNT 158 10^3/uL (150-450); RED BLOOD COUNT 4.95 10^6/uL (4.35-5.55); RED CELL DISTRIBUTION WIDTH 14.1 % (11.5-14.0); SEGMENTED NEUTROPHILS % (AUTO) 64.7 % (42-78); TOTAL CELLS COUNTED % (AUTO) 100 %; WHITE BLOOD COUNT 7.8 10^3/uL (4.0-10.5)
[2020-01-09 14:36] LABS: BLOOD UREA NITROGEN 27 mg/dL (7-20); GLUCOSE 120 mg/dL (75-110); POTASSIUM 4.8 mmol/L (3.6-5.0)
[2020-01-09 14:37] LABS: ALBUMIN 5.1 g/dL (3.5-5.0); ALKALINE PHOSPHATASE 89 U/L (38-126); ANION GAP 12 (5-19); ASPARTATE AMINO TRANSFERASE 26 U/L (17-59); BILIRUBIN,TOTAL 0.7 mg/dL (0.2-1.3); CARBON DIOXIDE 26 mmol/L (22-30); CHLORIDE 98 mmol/L (98-107); CHOLESTEROL 193.78 mg/dL (0-200); TOTAL PROTEIN 8.3 g/dL (6.3-8.2); TRIGLYCERIDES 147 mg/dL (<150)
[2020-01-09 14:48] LABS: DIRECT LDL 124 mg/dL (<100)
== END ==
LOC: OD 13:01
PROVIDERS: ATTEND Family Medicine
DX: I10 Essential (primary) hypertension (principal); E78.2 Mixed hyperlipidemia
CPT/HCPCS: 36415; 80053; 80061; 84443; 85025

== ENCOUNTER → 2020-04-21 | Outpatient (CLI) | payer MEDICARE | LOC: OD 10:36 | PROVIDERS: ATTEND Family Medicine | DX: Z51.81 Encounter for therapeutic drug level monitoring (principal); Z79.899 Other long term (current) drug therapy | CPT/HCPCS: 36415; 80164 ==

== ENCOUNTER → 2020-05-21 | Outpatient (CLI) | payer MEDICARE ==
[2020-05-21 11:35] LABS: ANION GAP 11 (5-19); BLOOD UREA NITROGEN 33 mg/dL (7-20); CALCIUM 9.6 mg/dL (8.4-10.2); CARBON DIOXIDE 26 mmol/L (22-30); CHLORIDE 101 mmol/L (98-107); GLUCOSE 139 mg/dL (75-110); POTASSIUM 4.7 mmol/L (3.6-5.0)
== END ==
LOC: OD 10:11
PROVIDERS: ATTEND Family Medicine
DX: E11.65 Type 2 diabetes mellitus with hyperglycemia (principal)
CPT/HCPCS: 36415; 80048; 83036

== ENCOUNTER → 2020-07-18 | Outpatient (CLI) | payer OTHER, MEDICARE ==
--- NOTE | 2020-07-18 16:27 | RADIOLOGY REPORT (SQ) ---
EXAM DESCRIPTION: MRI LUMBAR SPINE WITHOUT IMAGES COMPLETED DATE/TIME: 07/18/2020 1:05 pm REASON FOR STUDY: M54.42 LUMBAGO M54.42 LUMBAGO WITH SCIATICA, LEFT SIDE COMPARISON: None. TECHNIQUE: Sagittal and Axial imaging includes T1, T2, STIR and gradient echo sequences. Coronal T2/ HASTE imaging. LIMITATIONS: None. FINDINGS: VISUALIZED UPPER ABDOMEN: Limited evaluation. No acute or suspicious findings suggested. SEGMENTATION: No transitional anatomy. The lowest well-developed disc space is labeled L5-S1. ALIGNMENT: Anatomic. VERTEBRAE: Intact. BONE MARROW: Normal. No marrow replacement or reactive changes. DISC SIGNAL: Mild loss of T2 signal and height L2-3. POSTERIOR ELEMENTS: Generally intact. No pars defect evident. HARDWARE: None in the spine. CORD AND CONUS: Normal in size and signal intensity. Conus at the appropriate level. SOFT TISSUES: No aortic aneurysm seen. No bulky retroperitoneal adenopathy or mass. No paraspinal mas s or fluid. L1-L2: No significant spinal stenosis or exit foraminal stenosis. L2-L3: No significant spinal stenosis or exit foraminal stenosis. L3-L4: Disc bulge asymmetric left. Mild narrowing of the exit foramina left greater than right. L4-L5: Disc bulge. Facet overgrowth. Mild narrowing the exit foramina. L5-S1: No significant spinal stenosis or exit foraminal stenosis. LOWER THORACIC: Incompletely imaged. No stenosis seen. SACRUM: Visualized upper sacrum intact. OTHER: No other significant findings. IMPRESSION: Mild spondylosis without critical stenosis. TECHNICAL DOCUMENTATION: JOB ID: [id number] 2010 [employer]- All Rights Reserved Reading location - IP/workstation name: [email or web address]
== END ==
LOC: RAD 12:03
PROVIDERS: ATTEND Family Medicine
DX: M54.42 Lumbago with sciatica, left side (principal)
CPT/HCPCS: 72148